=== PATIENT | male | born 1965 | race Caucasian/White ===

== ENCOUNTER 2025-07-23 12:53 | Emergency (ER) | payer BC, SELFPAY ==
[2025-07-23 12:54] VITALS: BP 167/110
--- NOTE | 2025-07-23 13:46 | ED.GENMED ---
History of Present Illness
General
Chief Complaint: Fall
Source: patient
Exam Limitations: none
Time Seen by Provider: 07/23/25 13:28
History of Present Illness
History of Present Illness:
60 y/o M R hand dominant
h/o BPH
here with R shoulder pain after mechanicla slip and fall today while outside
pt says his R shoulder was adducted and int rotated against him when he fell onto it
no numbness/tingling/weakness
pain with limited ROM
no meds [employer]
denies head strike
no thinners
concerned that it is dislocated
Past History
Past History
ED Past Medical History: Other (bph)
Social History
Tobacco: Non-smoker
Review of Systems
Review of Systems
Allergies reviewed?: Yes
All Other Systems: Not applicable
Phy Exam
Physical Exam
Physical Exam:
GENERAL: Alert , in no apparent distress, comfortable at rest
HEAD: NCAT
CV: 2+ radial pulse, brachial pulse, cap refill intact
NEUROLOGICAL: Alert and oriented, no focal neuro deficits, , 5/5 strength, sensation intact, ambulation normal
SKIN: Warm and dry, no skin changes to the shoulder
MUSCULOSKELETAL: Normal inspection of the right shoulder, nontender at AC joint, no step-offs, no effusion, able to touch opposite shoulder with some discomfort but was able to fully range the shoulder including full arm extension above the head as
well as abduction and rotation externally, he has some mild discomfort, there is no clicking.
Distal right arm normal
PSYCH: Normal and appropriate interaction.
Course
Orders/Labs/Results
Orders:
Orders
07/23/25 12:54
Shoulder, Right, Trauma [CR Shoulder, Trauma - Right] Urgent
Comment:
Reason For Exam: fall
07/23/25 13:43
Ibuprofen [Motrin] 600 mg PO NOW STA
Vital Signs
Initial and Last Documented VS:
Initial Vital Signs
Temp Pulse Resp BP Pulse Ox
36.5 C 102 18 167/110 99
07/23/25 12:54 07/23/25 12:54 07/23/25 12:54 07/23/25 12:54 07/23/25 12:54
Last Documented Vital Signs
Temp Pulse Resp BP Pulse Ox
36.5 C 86 18 148/108 98
07/23/25 12:54 07/23/25 14:30 07/23/25 14:30 07/23/25 14:30 07/23/25 14:30
MDM/Problems Addressed
Differential Diagnosis Includes:
Shoulder sprain, shoulder fracture, less likely shoulder dislocation
MDM/Problems Addressed:
60 y/o M
mechanical fall onto R shoulder
pain with ROM but able to move the shoulder now more than earlier
pt presumed it was dislocated
he has no step offs or deformities
is able to lift arm above head
xray indep reviewed, m mild arthritis without fx or dislocation
p[t is hypertensive, probably related to anxiety and pain; bp improved slightly
counseled to f/u with PCP
pain meds, rice
*Pulse Oximetry
SaO2: 99
Oxygen Mode of Delivery: Room air
Patient hypoxic: no (98)
*Critical Care Note
Total Time (30-74mins, 75-104mins- exclusive of procedures): Not Applicable
ED Attending Note
-
Portions of this chart may have been created with voice recognition software.� Occasional wrong word or��sound alike� substitutions may have occurred due to the inherent limitations of voice recognition software.
Discharge Plan
Departure
Patient Disposition: Home (Routine Discharge)
Date of Disposition: 07/23/25
Time of Disposition: 14:08
Patient with high blood pressure during this ER visit?: Yes
Condition: Fair
Covid-19: Not Applicable
Discharge Problem:
Shoulder sprain, Elevated blood pressure reading
Instructions: Shoulder pain - ED (DC), BLOOD PRESSURE
Referrals:
NONE,* [Family Provider, Internal Medicine]
Shaan Hughes MD [Active, Orthopedics] - Follow up in 5-7 days
Activity Restrictions/Additional Instructions:
YOUR SHOULDER IS NOT FRACTURED OR DISLOCATED, YOU PROBABLY SPRAINED IT OR BRUISED.
YOU SHOULD ICE OFF AND ON
MOTRIN EVERY 8 HOURS NEEDED FOR PAIN
RETURN TO THE ER FOR : SEVERE PAIN, FEVER, WEAKNESS, ETC
OTHERWISE SEE ORTHOPEDICS IF IT IS STILL BOTHERING YOU IN A FEW DAYS
YOUR BLOOD PRESSURE WAS ELEVATED
HAVE THIS RECHECKED
Interventions
Interventions:
*Risk Screen - Suicide Last Done: 07/23/25 12:55
*General Assessment Last Done: 07/23/25 12:55
*Neglect/Abuse Screening Last Done: 07/23/25 12:55
*ED COVID-19 Vaccine History Last Done: 07/23/25 12:55
*Nursing Disposition Last Done: 07/23/25 14:50
ED-Musculoskeletal Assessment Last Done: 07/23/25 14:12
ED- Neurological Assessment Last Done: 07/23/25 14:12
ED-Skin Assessment Last Done: 07/23/25 14:12
Discharge Date and Time
Discharge Date/Time: 07/23/25 14:50
Print Language: INDONESIAN
[2025-07-23] MEDS: MOTRIN 600 MG PO (14:09)
[2025-07-23 14:30] VITALS: BP 148/108
== END 2025-07-23 14:50 | disposition home or self-care (01) ==
LOC: EMR 12:53
PROVIDERS: EMERGENCY PHYSICIAN Emergency Medicine
DX: S43.401A Unspecified sprain of right shoulder joint, initial encounter (principal); W19.XXXA Unspecified fall, initial encounter; N40.0 Benign prostatic hyperplasia without lower urinary tract symptoms; R03.0 Elevated blood-pressure reading, without diagnosis of hypertension
CPT/HCPCS: 99283; 73030

== ENCOUNTER 2025-10-06 06:08 | Day surgery (SDC) | payer BC, SELFPAY ==
[2025-10-02 08:34] LABS: Hematocrit 43.7 % (39.0-52.0); Hemoglobin 14.9 g/dL (13.0-18.0); Mean Corp Hgb Conc. 34.1 g/dL (33.0-37.0); Mean Corpuscular Volume 92.2 fL (80.0-94.0); Nucleated Red Blood Cells % 0 % (-); Platelet Count 330 10^3/uL (130-400); Red Cell Dist. Width 12.6 % (11.5-14.5)
[2025-10-02 09:03] LABS: Blood Urea Nitrogen 12 mg/dl (9-20); Calcium 9.9 mg/dl (8.4-10.2); Carbon Dioxide 31 mmol/L (22-30); Chloride 101 mmol/L (98-107); Glucose 96 mg/dl (70-99); Potassium 4.6 mmol/L (3.5-5.1); Sodium 136 mmol/L (135-145); eGFR > 60.00
[2025-10-06] VITALS (8 sets, daily range): BP systolic 101–145; BP diastolic 68–102; BMI 25.1
[2025-10-06] MEDS: TYLENOL 1000 MG PO (07:38)
[2025-10-06] MEDS: NORMOSOL-R/PLASMALYTE-A 1000 IV (07:41)
== END 2025-10-06 12:20 | disposition home or self-care (01) ==
LOC: SDS 06:08
PROVIDERS: ATTENDING PHYSICIAN Specialist
DX: M75.101 Unspecified rotator cuff tear or rupture of right shoulder, not specified as traumatic (principal)
CPT/HCPCS: 29827; 29826; 36415; 80048; 85025; 93005; C1713